=== PATIENT | female | born 1940 | race Caucasian/White ===

== ENCOUNTER → 2016-09-06 | Outpatient (REF) | payer MEDICARE, OTHER ==
[2016-09-06 12:14] LABS: ALBUMIN 4.2 GM/DL (3.2-5.2); ALKALINE PHOSPHATASE 77 U/L (45-117); ALT/SGPT 46 U/L (12-78); ANION GAP 9 MEQ/L (8-16); AST/SGOT 24 U/L (15-37); BILIRUBIN,TOTAL 0.7 MG/DL (0.2-1.0); BLOOD UREA NITROGEN 19 MG/DL (7-18); CALCIUM LEVEL 9.5 MG/DL (8.8-10.2); CARBON DIOXIDE LEVEL 30 MEQ/L (21-32); CHLORIDE LEVEL 101 MEQ/L (98-107); CHOLESTEROL LEVEL 197 MG/DL (<200); CREATININE FOR GFR 0.89 MG/DL (0.55-1.02); GLOMERULAR FILTRATION RATE > 60.0 (>39); GLUCOSE, FASTING 187 MG/DL (83-110); MAGNESIUM LEVEL 1.7 MG/DL (1.8-2.4); SODIUM LEVEL 140 MEQ/L (136-145); TRIGLYCERIDES LEVEL 120 MG/DL (<150); URIC ACID 8.9 MG/DL (2.6-6.0)
== END ==
LOC: M SFHCPLAZ 08:42
PROVIDERS: ATTEND Internal Medicine
DX: I10 Essential (primary) hypertension (principal); R73.01 Impaired fasting glucose; E78.00 Pure hypercholesterolemia, unspecified; E79.0 Hyperuricemia without signs of inflammatory arthritis and tophaceous disease

== ENCOUNTER → 2017-03-22 | Outpatient (REF) | payer MEDICARE, OTHER ==
[2017-03-22 12:38] LABS: ALBUMIN 4.2 GM/DL (3.2-5.2); ALKALINE PHOSPHATASE 69 U/L (45-117); ALT/SGPT 58 U/L (12-78); ANION GAP 10 MEQ/L (8-16); AST/SGOT 41 U/L (7-37); BILIRUBIN,TOTAL 0.6 MG/DL (0.2-1.0); BLOOD UREA NITROGEN 20 MG/DL (7-18); CALCIUM LEVEL 9.5 MG/DL (8.8-10.2); CARBON DIOXIDE LEVEL 28 MEQ/L (21-32); CHLORIDE LEVEL 103 MEQ/L (98-107); CHOLESTEROL LEVEL 219 MG/DL (<200); CREATININE FOR GFR 0.95 MG/DL (0.55-1.02); GLOMERULAR FILTRATION RATE > 60.0 (>39); GLUCOSE, FASTING 143 MG/DL (83-110); MAGNESIUM LEVEL 1.6 MG/DL (1.8-2.4); POTASSIUM SERUM 4.5 MEQ/L (3.5-5.1); SODIUM LEVEL 141 MEQ/L (136-145); TRIGLYCERIDES LEVEL 148 MG/DL (<150); URIC ACID 6.3 MG/DL (2.6-6.0)
== END ==
LOC: M SFHCPLAZ 08:49
PROVIDERS: ATTEND Internal Medicine
DX: I10 Essential (primary) hypertension (principal); E11.29 Type 2 diabetes mellitus with other diabetic kidney complication; E78.00 Pure hypercholesterolemia, unspecified; E79.0 Hyperuricemia without signs of inflammatory arthritis and tophaceous disease

== ENCOUNTER → 2017-10-25 | Outpatient (REF) | payer MEDICARE, OTHER ==
[2017-10-25 10:30] LABS: HEMATOCRIT 37.3 % (36.0-47.0); HEMOGLOBIN 12.5 g/dl (12.0-15.5); MEAN CORPUSCULAR HEMOGLOBIN 31.6 pg (27.0-33.0); MEAN CORPUSCULAR HGB CONC 33.5 g/dl (32.0-36.5); MEAN CORPUSCULAR VOLUME 94.2 fl (80.0-96.0); PLATELET COUNT, AUTOMATED 237 10^3/uL (150-450); RED BLOOD COUNT 3.96 10^6/uL (4.00-5.40); RED CELL DISTRIBUTION WIDTH 12.2 % (11.5-14.5)
[2017-10-25 11:35] LABS: ALBUMIN/GLOBULIN RATIO 1.33 (1.00-1.93); ALKALINE PHOSPHATASE 85 U/L (45-117); ALT/SGPT 37 U/L (12-78); ANION GAP 9 MEQ/L (8-16); AST/SGOT 26 U/L (7-37); BILIRUBIN,TOTAL 0.5 MG/DL (0.2-1.0); BLOOD UREA NITROGEN 20 MG/DL (7-18); CALCIUM LEVEL 8.7 MG/DL (8.8-10.2); CARBON DIOXIDE LEVEL 31 MEQ/L (21-32); CHLORIDE LEVEL 102 MEQ/L (98-107); CHOLESTEROL LEVEL 195 MG/DL (<200); CHOLESTEROL RISK RATIO 3.979 (<5); GLOMERULAR FILTRATION RATE 57.2 (>39); GLUCOSE, FASTING 152 MG/DL (70-100); HDL CHOLESTEROL 49 MG/DL (>40); LDL CHOLESTEROL 120.8 MG/DL (<100); MAGNESIUM LEVEL 1.7 MG/DL (1.8-2.4); NON-HDL-C 146 MG/DL; POTASSIUM SERUM 4.2 MEQ/L (3.5-5.1); SODIUM LEVEL 142 MEQ/L (136-145); TRIGLYCERIDES LEVEL 126 MG/DL (<150)
[2017-10-25 13:27] LABS: CREATININE, URINE < 13.0 MG/DL; MALB URINE SIEMENS < 5.0 MG/L
[2017-10-25 18:09] LABS: ESTIMATED AVERAGE GLUCOSE 154 MG/DL (60-110)
== END ==
LOC: M SFHCPLAZ 08:27
DX: K21.9 Gastro-esophageal reflux disease without esophagitis (principal); I10 Essential (primary) hypertension; E11.29 Type 2 diabetes mellitus with other diabetic kidney complication; E78.00 Pure hypercholesterolemia, unspecified
CPT/HCPCS: 83735

== ENCOUNTER → 2018-03-01 | Outpatient (REF) | payer MEDICARE, OTHER ==
[2018-03-01 12:28] LABS: ALBUMIN 4.1 GM/DL (3.2-5.2); ALBUMIN/GLOBULIN RATIO 1.46 (1.00-1.93); ALKALINE PHOSPHATASE 84 U/L (45-117); ALT/SGPT 32 U/L (12-78); ANION GAP 8 MEQ/L (8-16); AST/SGOT 32 U/L (7-37); BILIRUBIN,TOTAL 0.7 MG/DL (0.2-1.0); BLOOD UREA NITROGEN 24 MG/DL (7-18); CALCIUM LEVEL 9.4 MG/DL (8.8-10.2); CARBON DIOXIDE LEVEL 29 MEQ/L (21-32); CHLORIDE LEVEL 104 MEQ/L (98-107); CHOLESTEROL LEVEL 206 MG/DL (<200); CHOLESTEROL RISK RATIO 3.377 (<5); CREATININE FOR GFR 0.93 MG/DL (0.55-1.30); GLOMERULAR FILTRATION RATE > 60.0 (>39); GLUCOSE, FASTING 125 MG/DL (70-100); HDL CHOLESTEROL 61 MG/DL (>40); LDL CHOLESTEROL 119 MG/DL (<100); NON-HDL-C 145 MG/DL; POTASSIUM SERUM 4.7 MEQ/L (3.5-5.1); SODIUM LEVEL 141 MEQ/L (136-145); TOTAL 25(OH) VITAMIN D 44.6 NG/ML (30.0-100.0); TOTAL PROTEIN 6.9 GM/DL (6.4-8.2); TRIGLYCERIDES LEVEL 130 MG/DL (<150); URIC ACID 5.2 MG/DL (2.6-6.0)
[2018-03-01 12:56] LABS: CREATININE, URINE 13.8 MG/DL; MALB URINE SIEMENS < 5.0 MG/L
[2018-03-01 12:58] LABS: MAU/CREAT RATIO 36.2 MCG/MG (0.0-30.0)
[2018-03-01 13:34] LABS: ESTIMATED AVERAGE GLUCOSE 143 MG/DL (60-110); HEMOGLOBIN A1c 6.6 %
== END ==
LOC: M SFHCPLAZ 08:56
DX: I10 Essential (primary) hypertension (principal); E11.29 Type 2 diabetes mellitus with other diabetic kidney complication; E78.00 Pure hypercholesterolemia, unspecified; E79.0 Hyperuricemia without signs of inflammatory arthritis and tophaceous disease; E55.9 Vitamin D deficiency, unspecified; Z79.899 Other long term (current) drug therapy
CPT/HCPCS: 83735

== ENCOUNTER → 2018-07-17 | Outpatient (REF) | payer MEDICARE, OTHER ==
[~2018-07-17] MED LIST: ASPI1TAB PO; DRIS50003 PO; FURO20TA2 PO; GLUC1CAP10 PO; IBUP-1114 PO; LISI20TA PO; MAGN400C2 PO; METF500T13 PO; OXYB5TAB10 PO; PANT20TA2 PO; ZYLO300T6 PO
[2018-07-17 12:33] LABS: HEMATOCRIT 42.4 % (36.0-47.0); HEMOGLOBIN 13.8 g/dl (12.0-15.5); MEAN CORPUSCULAR HEMOGLOBIN 31.2 pg (27.0-33.0); MEAN CORPUSCULAR HGB CONC 32.5 g/dl (32.0-36.5); MEAN CORPUSCULAR VOLUME 95.7 fl (80.0-96.0); PLATELET COUNT, AUTOMATED 229 10^3/uL (150-450); RED BLOOD COUNT 4.43 10^6/uL (4.00-5.40); WHITE BLOOD COUNT 6.1 10^3/uL (4.0-10.0)
[2018-07-17 13:33] LABS: CREATININE, URINE < 13.0 MG/DL; MALB URINE SIEMENS < 5.0 MG/L
[2018-07-17 13:38] LABS: ALBUMIN 4.3 GM/DL (3.2-5.2); ALT/SGPT 28 U/L (12-78); BILIRUBIN,TOTAL 0.7 MG/DL (0.2-1.0); BLOOD UREA NITROGEN 24 MG/DL (7-18); CALCIUM LEVEL 9.8 MG/DL (8.8-10.2); CARBON DIOXIDE LEVEL 28 MEQ/L (21-32); CHLORIDE LEVEL 103 MEQ/L (98-107); CHOLESTEROL LEVEL 212 MG/DL (<200); CHOLESTEROL RISK RATIO 3.419 (<5); GLOMERULAR FILTRATION RATE > 60.0 (>39); GLUCOSE, FASTING 135 MG/DL (70-100); HDL CHOLESTEROL 62 MG/DL (>40); LDL CHOLESTEROL 128 MG/DL (<100); NON-HDL-C 150 MG/DL; POTASSIUM SERUM 4.4 MEQ/L (3.5-5.1); SODIUM LEVEL 140 MEQ/L (136-145); TRIGLYCERIDES LEVEL 108 MG/DL (<150)
[2018-07-17 15:44] LABS: HEMOGLOBIN A1c 6.6 %
== END ==
LOC: M SFHCPLAZ 09:21
PROVIDERS: ATTEND Internal Medicine
DX: K21.9 Gastro-esophageal reflux disease without esophagitis (principal); I10 Essential (primary) hypertension; E11.29 Type 2 diabetes mellitus with other diabetic kidney complication; E78.00 Pure hypercholesterolemia, unspecified

== ENCOUNTER → 2019-01-18 | Outpatient (REF) | payer MEDICARE, OTHER ==
[~2019-01-18] MED LIST changes: -ASPI1TAB PO; +ASPI81TA26 PO; -LISI20TA PO; +LISI20TA19 PO
[2019-01-18 12:28] LABS: ALBUMIN 4.2 GM/DL (3.2-5.2); BILIRUBIN,TOTAL 0.6 MG/DL (0.2-1.0); CALCIUM LEVEL 9.7 MG/DL (8.8-10.2); CHOLESTEROL RISK RATIO 3.442 (<5); CREATININE FOR GFR 1.07 MG/DL (0.55-1.30); GLOMERULAR FILTRATION RATE 52.8 (>39); MAGNESIUM LEVEL 2.1 MG/DL (1.8-2.4); POTASSIUM SERUM 4.5 MEQ/L (3.5-5.1); TOTAL PROTEIN 6.9 GM/DL (6.4-8.2)
[2019-01-18 13:21] LABS: HEMOGLOBIN A1c 7.2 %
== END ==
LOC: M SFHCPLAZ 08:58
PROVIDERS: ATTEND Internal Medicine
DX: I10 Essential (primary) hypertension (principal); E11.29 Type 2 diabetes mellitus with other diabetic kidney complication; E78.00 Pure hypercholesterolemia, unspecified

== ENCOUNTER 2019-11-26 02:11 | Inpatient (IN) | payer MEDICARE, BC, OTHER ==
[~2019-11-26] VITALS: Ht 160 cm; Wt 93.8 kg
[~2019-11-26 02:11] MED LIST changes: -LISI20TA19 PO; +LISI20TA35 PO; -PANT20TA2 PO; +PANT20TA6 PO
[2019-11-26] MEDS ORDERED: TRUL10IN INJ (02:25)
[2019-11-26] MEDS ORDERED: AMIT25TA PO (02:25)
[2019-11-26] MEDS ORDERED: NS 500 ML IV ONE ×2 (03:15→05:45)
[2019-11-26 03:32] LABS: BASO # 0.1 10^3/uL (0.0-0.2); BASO % 0.3 % (0.0-1.0); EOS % 0.1 % (0.0-3.0); HEMATOCRIT 41.2 % (36.0-47.0); HEMOGLOBIN 13.5 g/dl (12.0-15.5); LYMPH # 0.8 10^3/uL (1.5-5.0); LYMPH % 4.7 % (24.0-44.0); MEAN CORPUSCULAR HEMOGLOBIN 30.8 pg (27.0-33.0); MEAN CORPUSCULAR HGB CONC 32.8 g/dl (32.0-36.5); MEAN CORPUSCULAR VOLUME 93.8 fl (80.0-96.0); MONO % 5.7 % (0.0-5.0); NEUTROPHILS % 88.8 % (36.0-66.0); PLATELET COUNT, AUTOMATED 178 10^3/uL (150-450); RED BLOOD COUNT 4.39 10^6/uL (4.00-5.40); WHITE BLOOD COUNT 16.9 10^3/uL (4.0-10.0)
[2019-11-26] MEDS: GASTROGRAFIN SOLUTION 30ML PO SCH ×2 (03:35→04:05)
[2019-11-26 04:00] LABS: ALBUMIN 3.6 GM/DL (3.2-5.2); BILIRUBIN,DIRECT 0.2 MG/DL (0.0-0.2); BILIRUBIN,TOTAL 0.8 MG/DL (0.2-1.0); CALCIUM LEVEL 8.7 MG/DL (8.8-10.2); CREATININE FOR GFR 1.09 MG/DL (0.55-1.30); GLOMERULAR FILTRATION RATE 51.5 (>39); POTASSIUM SERUM 3.9 MEQ/L (3.5-5.1); TOTAL PROTEIN 6.6 GM/DL (6.4-8.2)
[2019-11-26] MEDS ORDERED: ISOVUE-370 76% 100ML VIAL As Ordered ONE (05:29)
[2019-11-26 06:00] LABS: APPEARANCE, URINE HAZY (CLEAR); BACTERIA, URINE AUTO NEGATIVE (NEGATIVE); BILIRUBIN, URINE AUTO NEGATIVE (NEGATIVE); BLOOD, URINE BLOOD 1+ (NEGATIVE); COLOR, URINE YELLOW (YELLOW); GLUCOSE, URINE (UA) AUTO NEGATIVE (NEGATIVE); KETONE, URINE AUTO NEGATIVE (NEGATIVE); LEUKOCYTE ESTERASE, URINE AUTO 2+ (NEGATIVE); MUCUS, URINE SMALL (NEGATIVE); NITRITE, URINE AUTO NEGATIVE (NEGATIVE); PROTEIN, URINE AUTO NEGATIVE (NEGATIVE); RBC, URINE AUTO 3 /HPF (0-3); SPECIFIC GRAVITY URINE AUTO 1.026 (1.002-1.035); SQUAMOUS EPITHELIAL CELL UR AU 3 /HPF (0-6); UROBILINOGEN, URINE AUTO 0.2 mg/dL (0.0-2.0); WBC, URINE AUTO 2 /HPF (0-3)
[2019-11-26] MEDS ORDERED: ACETAMINOPHEN *IV* 1,000 MG in IV 1 EA IV ONE (06:00)
[2019-11-26] MEDS ORDERED: diphenhydrAMINE 50MG/ML VIAL (J1200) IV STA (06:05)
--- NOTE | 2019-11-26 06:23 | REPVR ---
PROCEDURE INFORMATION: Exam: CT Abdomen And Pelvis With Contrast Exam date and time: 11/26/2019 5:32 AM Age: 79 years old Clinical indication: Abdominal pain; Additional info: Lower quad pain TECHNIQUE: Imaging protocol: Computed tomography of the abdomen and pelvis with intravenous contrast. Radiation optimization: All CT scans at this facility use at least one of these dose optimization techniques: automated exposure control; mA and/or kV adjustment per patient size (includes targeted exams where dose is matched to clinical indication); or iterative reconstruction. Contrast material: ISO 370; Contrast volume: 100 ml; Contrast route: INTRAVENOUS (IV); COMPARISON: No relevant prior studies available. FINDINGS: Limitations: Limited by patient's body habitus. Mediastinal space: Small gastroesophageal sliding type hiatal hernia. Mild gastro-esophageal thickening. Question distal esophagitis. Liver: Normal. No mass. Gallbladder and bile ducts: Cholecystectomy clips in the right upper quadrant. Pancreas: Normal. No ductal dilation. Spleen: Normal. No splenomegaly. Adrenals: Normal. No mass. Kidneys and ureters: Normal. No hydronephrosis. Stomach and bowel: Mild colonic diverticulosis without evidence for acute diverticulitis. Minimal stranding adjacent to the cecum. Appendix: No appendix identified. Intraperitoneal space: Unremarkable. No free air. No significant fluid collection. Vasculature: Unremarkable. No abdominal aortic aneurysm. Lymph nodes: Unremarkable. No enlarged lymph nodes. Bladder: Unremarkable as visualized. Reproductive: Hysterectomy. Bones/joints: Moderate to severe lower lumbar spinal stenosis. Soft tissues: Abnormal soft tissue thickening of the ascending colon, correlate for neoplasm, or perhaps infectious or inflammatory causes. IMPRESSION: 1. Abnormal soft tissue thickening of the ascending colon, correlate for neoplasm, or perhaps infectious or inflammatory causes. Minimal stranding adjacent to the cecum. Recommend GI follow-up. Consider barium enema. 2. Mild gastro-esophageal thickening. Question distal esophagitis. Electronically signed by: Olegario Garza On 11/26/2019 06:22:41 AM
[2019-11-26] MEDS ORDERED: metroNIDAZOLE 500 MG in IV 1 EA IV ONE (06:45)
[2019-11-26] MEDS ORDERED: CIPROFLOXACIN 400 MG in IV 1 EA IV ONE (06:45)
[2019-11-26] MEDS ORDERED: VITA50005 PO (06:54)
[2019-11-26] MEDS ORDERED: DEXTROSE 50% 50 ML SYRINGE IV PRN (10:30)
[2019-11-26] MEDS ORDERED: GLUCAGON INJ 1MG VIAL SC PRN (10:30)
[2019-11-26] MEDS ORDERED: GLUCOSE 4GM CHEW TABLET PO PRN (10:30)
[2019-11-26] MEDS ORDERED: MORPHINE 4 MG/ML 1ML VIAL/SYRINGE (J2270) IV PRN (11:15)
[2019-11-26] MEDS ORDERED: ONDANSETRON 4MG/2ML VIAL IV PRN (11:15)
[2019-11-26] MEDS: NS 1,000 ML IV SCH ×2 (11:16→19:57)
[2019-11-26] MEDS: ENOXAPARIN 40MG/0.4ML SYRINGE (J1650 PER 10MG) SC SCH (11:17)
[2019-11-26] MEDS ORDERED: ACETAMINOPHEN 500 MG TAB As Ordered ONE (13:03)
[2019-11-26] MEDS ORDERED: ACETAMINOPHEN 500 MG TAB PO ONE (13:15)
[2019-11-26 13:40] VITALS: BP 136/65
[2019-11-26] MEDS: HumaLOG INSULIN (NovoLOG) PER UNIT SC SCH ×3 (14:18→21:00)
[2019-11-26] MEDS: PANTOPRAZOLE 40MG VIAL (C9113 PER 1) IV SCH (14:26)
[2019-11-26] MEDS: metroNIDAZOLE 500 MG in IV 1 EA IV SCH ×2 (14:26→21:50)
[2019-11-26] MEDS: CIPROFLOXACIN 400 MG in IV 1 EA IV SCH (19:57)
--- NOTE | 2019-11-26 20:20 | HPEPDOC ---
General Date of Admission 11/26/19 Date of Service: Nov 26, 2019 Chief Complaint The patient is a 79-year-old female admitted with a reason for visit of N/V. History of Present Illness 79 year old female with PMH of HTN, DM, HLD, GERD, Diverticulosis came to the ED with abdominal pain, nausea and fever which started last night. She was taking ASA every 2 hours at home to control the fever. However it did not improve so came to the ED. He abdominal pain is crampy and is relieved after she has a bowel movement. When the cramps come it is about 8/10 in intensity then it relaxes. The stool is liquid greenish in color with no blood in it. CT in the the ED showed Abnormal soft tissue thickening of the ascending colon, perhaps infectious or inflammatory causes however neoplasm also needs to be ruled out. Minimal stranding adjacent to the cecum. Mild gastro-esophageal thickening. Question distal esophagitis. Patient had colonoscopy 2 years ago. Patient was admitted for Colitis. Home Medications Scheduled Allopurinol (Zyloprim) 300 Mg Tab, 150 MG PO DAILY, (Reported) Amitriptyline HCl (Amitriptyline HCl) 25 Mg Tablet, 25 MG PO QHS, (Reported) Aspirin (Aspirin EC) 81 Mg Tab, 81 MG PO DAILY, (Reported) Dulaglutide (Trulicity) 0.75 Mg/0.5 Ml Pen.injctr, 0.75 MG INJ QWEEK, (Reported) tuesday Ergocalciferol (Vitamin D2) (Vitamin D2) 50,000 Units Cap, 50,000 UNITS PO Q2WK, (Reported) tuesday Furosemide (Furosemide) 20 Mg Tab, 20 MG PO 3XW, (Reported) tue,tue,tue Gluc Floyd/Chondro Floyd A/Vit C/Mn (Glucosamine-Chondroitin Cap) 1 Cap Cap, 1 CAP PO DAILY, (Reported) Lisinopril/Hydrochlorothiazide (Lisinopril-Hctz 20-12.5 mg Tab) 1 Tab Tab, 1 TAB PO DAILY, (Reported) Magnesium Oxide (Magnesium) 400 Mg Cap, 400 MG PO DAILY, (Reported) Oxybutynin Chloride (Oxybutynin Chloride) 5 Mg Tab, 5 MG PO DAILY, (Reported) Pantoprazole Sodium (Pantoprazole Sodium) 20 Mg Tab, 20 MG PO DAILY, (Reported) Scheduled PRN Ibuprofen (Ibuprofen) 400 Mg Tab, 400 MG PO QHS PRN for PAIN, (Reported) Allergies Coded Allergies: Penicillins (Unverified Allergy, Intermediate, RASH, 11/26/19) shellfish derived (Unverified Allergy, Unknown, 11/26/19) morphine (Verified Adverse Reaction, Mild, N/V, 11/26/19) sitagliptin (Verified Adverse Reaction, Mild, DIARRHEA, 11/26/19) Past Medical History Medical History HYPERTENSION TYPE 2 DIABETES MELLITUS WITH OTHER DIABETIC KIDNEY COMPLICATION HYPERCHOLESTEROLEMIA GASTROESOPHAGEAL REFLUX ALLERGIC RHINITIS DYSTHYMIA VITAMIN D DEFICIENCY DIVERTICULOSIS 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 Social History * Smoker: non-smoker Alcohol: rarely Drugs: denies A-FIB/CHADSVASC A-FIB History Current/History of A-Fib/PAF?: No Review of Systems Constitutional: Reports: Chills, Fever, Malaise, Weakness Eyes: Denies: Pain, Vision change ENT: Denies: Head Aches, Ear Pain, Dysphagia Skin: Denies: Rash, Lesions, Breakdown Pulmonary: Denies: Dyspnea, Cough Cardiovascular: Denies: Chest Pain, Palpitations, Orthopnea, Paroxysmal Noc. Dyspnea, Lt Headedness Gastrointestinal: Reports: Nausea, Abdominal Pain, Diarrhea Genitourinary: Reports: Incontinence; Denies: Dysuria, Frequency, Retention Hematologic: Denies: Bruising, Bleeding Excessively Musculoskeletal: Reports: Back Pain; Denies: Neck Pain, Joint Pain, Muscle Pain, Spasms Physical Examination General Exam: Positive: Alert, Cooperative, No Acute Distress Eye Exam: Positive: PERRLA, Conjunctiva & lids normal, EOMI; Negative: Sclera icteric ENT Exam: Positive: Atraumatic, Mucous membr. moist/pink, Pharynx Normal Neck Exam: Positive: Supple; Negative: JVD, thyromegaly Chest Exam: Positive: Clear to auscultation, Normal air movement Heart Exam: Positive: Rate Normal, Regular Rhythm, Normal S1, Normal S2; Negative: Murmurs, Rubs Abdomen Exam: Positive: Normal bowel sounds, Soft, Tenderness (on juaquin right illiac fossa, right lumber region), Other (No guarding or rigidity); Negative: Hepatospenomegaly Extremity Exam: Negative: Clubbing, Cyanosis, Edema Skin Exam: Positive: Other skin issue (chronic venous stasis changes) Neuro Exam: Positive: Normal Speech, Strength at 5/5 X4 ext, Normal Tone Vital Signs Vital Signs Date Time Temp Pulse Resp B/P (MAP) Pulse Ox O2 Delivery O2 Flow Rate FiO2 11/26/19 06:46 18 152/67 (95) 95 Room Air 11/26/19 06:30 117 11/26/19 06:15 99.2 Laboratory Data Labs 24H Laboratory Tests 2 11/26/19 03:00: Immature Granulocyte % (Auto) 0.4, Neutrophils (%) (Auto) 88.8H, Lymphocytes (%) (Auto) 4.7L, Monocytes (%) (Auto) 5.7H, Eosinophils (%) (Auto) 0.1, Basophils (%) (Auto) 0.3, Neutrophils # (Auto) 15.0H, Lymphocytes # (Auto) 0.8L, Monocytes # (Auto) 1.0H, Eosinophils # (Auto) 0.0, Basophils # (Auto) 0.1, Nucleated Red Blood Cells % (auto) 0.0, Urine Color YELLOW, Urine Appearance HAZY, Urine pH 5.0, Urine Specific [place] 1.026, Urine Protein NEGATIVE, Urine Glucose (Au to)(UA) NEGATIVE, Urine Ketones (Auto) NEGATIVE, Urine Blood 1+H, Urine Nitrite NEGATIVE, Urine Bilirubin NEGATIVE, Urine Urobilinogen 0.2, Urine Leukocyte Esterase (Auto) 2+H, Urine WBC (Auto) 2, Urine RBC (Auto) 3, Urine Hyaline Casts (Auto) 4, Urine Bacteria (Auto) NEGATIVE, Urine Squamous Epithelial Cells 3, Urine Mucus (Auto) SMALL, Urine Sperm (Auto) , Anion Gap 9, Glomerular Filtration Rate 51.5, Lactic Acid Level 2.2*H, Calcium Level 8.7L, Total Bilirubin 0.8, Direct Bilirubin 0.2, Aspartate Amino Transf (AST/SGOT) 24, Alanine Aminotransferase (ALT/SGPT) 36, Alkaline Phosphatase 78, Total Protein 6.6, Albumin 3.6, Albumin/Globulin Ratio 1.2, Lipase 81 CBC/BMP Laboratory Tests 11/26/19 03:00 Microbiology Microbiology 11/26/19 Respiratory Virus Panel (PCR) ([facility]), Received Pending 11/26/19 Blood Culture, Received Pending Assessment/Plan 79 year old female with PMH of HTN, DM, HLD, GERD, Diverticulosis came to the ED with abdominal pain, nausea and fever which started last night. She was taking ASA every 2 hours at home to control the fever. However it did not improve so came to the ED. He abdominal pain is crampy and is relieved after she has a bowel movement. When the cramps come it is about 8/10 in intensity then it relaxes. The stool is liquid greenish in color with no blood in it. CT in the the ED showed Abnormal soft tissue thickening of the ascending colon, perhaps infectious or inflammatory causes however neoplasm also needs to be ruled out. Minimal stranding adjacent to the cecum. Mild gastro-esophageal thickening. Question distal esophagitis. Patient had colonoscopy 2 years ago. Patient was admitted for Colitis. Colitis with Sepsis will treat as infectious colitis at present check GI panel Cipro and flagyl. IVF, IV Morphine 3 mg q 3hours for pain control Will Consider GI evaluation if no improvement by tomorrow Hypertension Hold lisinopril, lasix and HCTZ for now Bp well controlled will restart lisinopril if needed. Diabetes with neuropathy lispro as per sliding scle. FS AC and HS. No trulicity here. amitriptyline. GERD PPI Hyperuricemia continue allopurinol Plan / VTE VTE Prophylaxis Ordered?: Yes SONNY PICHARDO MD Nov 26, 2019 10:43
[2019-11-26] MEDS: AMITRIPTYLINE 25 MG TAB PO SCH (21:50)
[2019-11-26 22:00] VITALS: BP 130/71
[2019-11-27] MEDS: metroNIDAZOLE 500 MG in IV 1 EA IV SCH (05:24)
[2019-11-27 06:00] VITALS: BP 138/62
[2019-11-27] MEDS: NS 1,000 ML IV SCH ×2 (06:30→13:16)
[2019-11-27] MEDS: HumaLOG INSULIN (NovoLOG) PER UNIT SC SCH ×4 (08:27→20:56)
[2019-11-27] MEDS: CIPROFLOXACIN 400 MG in IV 1 EA IV SCH ×2 (08:28→20:38)
[2019-11-27] MEDS: oxyBUTYnin 5 MG TAB PO SCH (08:28)
[2019-11-27] MEDS: ASPIRIN 81 MG ENTERIC TAB PO SCH (08:28)
[2019-11-27] MEDS: allopurinoL 300 MG TAB PO SCH (08:28)
[2019-11-27] MEDS: ENOXAPARIN 40MG/0.4ML SYRINGE (J1650 PER 10MG) SC SCH (08:29)
[2019-11-27] MEDS: PANTOPRAZOLE 40MG VIAL (C9113 PER 1) IV SCH (08:29)
[2019-11-27 08:54] LABS: BASO % 0.3 % (0.0-1.0); HEMATOCRIT 38.4 % (36.0-47.0); HEMOGLOBIN 12.3 g/dl (12.0-15.5); LYMPH # 1.9 10^3/uL (1.5-5.0); LYMPH % 15.8 % (24.0-44.0); MEAN CORPUSCULAR HEMOGLOBIN 30.8 pg (27.0-33.0); MONO # 0.6 10^3/uL (0.0-0.8); MONO % 4.6 % (0.0-5.0); NEUTROPHILS # 9.3 10^3/uL (1.5-8.5); NEUTROPHILS % 78.9 % (36.0-66.0); PLATELET COUNT, AUTOMATED 142 10^3/uL (150-450); WHITE BLOOD COUNT 11.8 10^3/uL (4.0-10.0)
[2019-11-27 09:15] LABS: ALBUMIN 2.8 GM/DL (3.2-5.2); ALT/SGPT 26 U/L (12-78); BILIRUBIN,TOTAL 0.8 MG/DL (0.2-1.0); BLOOD UREA NITROGEN 10 MG/DL (7-18); CALCIUM LEVEL 8.1 MG/DL (8.8-10.2); CARBON DIOXIDE LEVEL 22 MEQ/L (21-32); CHLORIDE LEVEL 107 MEQ/L (98-107); CREATININE FOR GFR 0.83 MG/DL (0.55-1.30); GLOMERULAR FILTRATION RATE > 60.0 (>39); GLUCOSE, FASTING 147 MG/DL (70-100); POTASSIUM SERUM 3.2 MEQ/L (3.5-5.1); SODIUM LEVEL 138 MEQ/L (136-145)
[2019-11-27] MEDS ORDERED: POTASSIUM CHLORIDE 10 MEQ SR TABLET PO ONE (10:00)
[2019-11-27 14:00] VITALS: BP 108/63
--- NOTE | 2019-11-27 15:35 | IPNPDOC ---
Text Note Date of Service The patient was seen on 11/27/19. NOTE Subjective: Pt feels better today. Abd pain improving. No N/V. No CP/SOB/palpitations. Objective: Vitals: (see below) General: No acute distress, laying comfortably in bed. HEENT: Moist mucous membranes. Neck: No JVD or lymphadenopathy Cardiac: RRR, No murmurs Pulm: Clear to auscultation b/l. No wheezing, rhonchi Abd: NT/ND + BS Ext: No edema or cyanosis Labs (see below) Images: Assessment/Plan 79 year old female with PMH of HTN, DM, HLD, GERD, Diverticulosis came to the ED with abdominal pain, nausea and fever which started last night. She was taking ASA every 2 hours at home to control the fever. However it did not improve so came to the ED. He abdominal pain is crampy and is relieved after she has a bowel movement. When the cramps come it is about 8/10 in intensity then it relaxes. The stool is liquid greenish in color with no blood in it. CT in the the ED showed Abnormal soft tissue thickening of the ascending colon, perhaps i nfectious or inflammatory causes however neoplasm also needs to be ruled out. Minimal stranding adjacent to the cecum. Mild gastro-esophageal thickening. Question distal esophagitis. Patient had colonoscopy 2 years ago. Patient was admitted for Colitis. Colitis with Sepsis -Improving - Leukocytosis trending down - +Salmonella - Cipro and flagyl. IVF, IV Morphine 3 mg q 3hours for pain control - Advance diet as tolerated Hypertension Hold lisinopril, lasix and HCTZ for now Bp well controlled will restart lisinopril if needed. Diabetes with neuropathy lispro as per sliding scle. FS AC and HS. No trulicity here. amitriptyline. GERD PPI Hyperuricemia continue allopurinol DVT prophy: Lovenox VS,Fishbone, I+O VS, Fishbone, I+O Laboratory Tests 11/27/19 08:22 Vital Signs Date Time Temp Pulse Resp B/P (MAP) Pulse Ox O2 Delivery O2 Flow Rate FiO2 11/27/19 14:00 98.0 70 20 108/63 (78) 97 Room Air I&O- Last 24 Hours up to 6 AM 11/27/19 06:00 Intake Total 3222 ml Output Total 200 ml Balance 3022 ml TAYLOR CALERO MD Nov 27, 2019 15:35
[2019-11-27] MEDS: AMITRIPTYLINE 25 MG TAB PO SCH (20:38)
[2019-11-27 22:00] VITALS: BP 148/67
[2019-11-28] MEDS: ACETAMINOPHEN TAB 650MG DOSE (2X325MG) PO PRN ×2 (00:56→10:50)
[2019-11-28] MEDS: NS 1,000 ML IV SCH ×3 (02:30→20:16)
[2019-11-28 05:51] LABS: BASO % 0.4 % (0.0-1.0); EOS # 0.1 10^3/uL (0.0-0.5); EOS % 1.2 % (0.0-3.0); HEMATOCRIT 35.1 % (36.0-47.0); HEMOGLOBIN 11.3 g/dl (12.0-15.5); LYMPH # 1.3 10^3/uL (1.5-5.0); MEAN CORPUSCULAR HEMOGLOBIN 30.8 pg (27.0-33.0); MEAN CORPUSCULAR HGB CONC 32.2 g/dl (32.0-36.5); MEAN CORPUSCULAR VOLUME 95.6 fl (80.0-96.0); MONO # 0.6 10^3/uL (0.0-0.8); MONO % 7.7 % (0.0-5.0); NEUTROPHILS # 5.5 10^3/uL (1.5-8.5); NEUTROPHILS % 73.2 % (36.0-66.0); PLATELET COUNT, AUTOMATED 127 10^3/uL (150-450); RED BLOOD COUNT 3.67 10^6/uL (4.00-5.40); WHITE BLOOD COUNT 7.5 10^3/uL (4.0-10.0)
[2019-11-28 06:00] VITALS: BP 152/77
[2019-11-28 06:11] LABS: ALBUMIN 2.5 GM/DL (3.2-5.2); ALT/SGPT 23 U/L (12-78); BILIRUBIN,TOTAL 0.5 MG/DL (0.2-1.0); BLOOD UREA NITROGEN 7 MG/DL (7-18); CALCIUM LEVEL 7.8 MG/DL (8.8-10.2); CARBON DIOXIDE LEVEL 27 MEQ/L (21-32); CHLORIDE LEVEL 113 MEQ/L (98-107); GLOMERULAR FILTRATION RATE > 60.0 (>39); GLUCOSE, FASTING 132 MG/DL (70-100); MAGNESIUM LEVEL 1.4 MG/DL (1.8-2.4); POTASSIUM SERUM 3.5 MEQ/L (3.5-5.1); SODIUM LEVEL 143 MEQ/L (136-145); TOTAL PROTEIN 5.3 GM/DL (6.4-8.2)
[2019-11-28] MEDS: ENOXAPARIN 40MG/0.4ML SYRINGE (J1650 PER 10MG) SC SCH (08:04)
[2019-11-28] MEDS: PANTOPRAZOLE 40MG VIAL (C9113 PER 1) IV SCH (08:04)
[2019-11-28] MEDS: allopurinoL 300 MG TAB PO SCH (08:05)
[2019-11-28] MEDS: ASPIRIN 81 MG ENTERIC TAB PO SCH (08:05)
[2019-11-28] MEDS: oxyBUTYnin 5 MG TAB PO SCH (08:05)
[2019-11-28] MEDS: HumaLOG INSULIN (NovoLOG) PER UNIT SC SCH ×4 (08:05→21:00)
[2019-11-28] MEDS: CIPROFLOXACIN 400 MG in IV 1 EA IV SCH ×2 (08:08→20:16)
[2019-11-28] MEDS ORDERED: POTASSIUM CHLORIDE 10 MEQ SR TABLET PO ONE (09:00)
[2019-11-28] MEDS ORDERED: MAG SULF 1GM/100ML (MAG RUN) 1 GM in IV 1 EA IV ONE (09:00)
[2019-11-28] MEDS: lisinopriL 10 MG TAB PO SCH (10:50)
[2019-11-28 14:00] VITALS: BP 146/68
--- NOTE | 2019-11-28 15:40 | IPNPDOC ---
Text Note Date of Service The patient was seen on 11/28/19. NOTE Subjective: Pt with diarrhea again this am. Abd pain improving. No N/V. No CP /SOB/palpitations. Objective: Vitals: (see below) General: No acute distress, laying comfortably in bed. HEENT: Moist mucous membranes. Neck: No JVD or lymphadenopathy Cardiac: RRR, No murmurs Pulm: Clear to auscultation b/l. No wheezing, rhonchi Abd: NT/ND + BS Ext: No edema or cyanosis Labs (see below) Images: Assessment/Plan 79 year old female with PMH of HTN, DM, HLD, GERD, Diverticulosis came to the ED with abdominal pain, nausea and fever which started last night. She was taking ASA every 2 hours at home to control the fever. However it did not improve so came to the ED. He abdominal pain is crampy and is relieved after she has a bowel movement. When the cramps come it is about 8/10 in intensity then it relaxes. The stool is liquid greenish in color with no blood in it. CT in the the ED showed Abnormal soft tissue thickening of the ascending colon, perhaps infectious or inflammatory causes however neoplasm also needs to be ruled out. Minimal stranding adjacent to the cecum. Mild gastro-esophageal thickening. Question distal esophagitis. Patient had colonoscopy 2 years ago. Patient was admitted for Colitis. Colitis with Sepsis -Improving - Leukocytosis trending down - +Salmonella - Cipro and flagyl. IVF, IV Morphine 3 mg q 3hours for pain control - Advance diet as tolerated Hypertension Restart lisinopril Hold lasix and HCTZ for now Bp well controlled Diabetes with neuropathy lispro as per sliding scle. FS AC and HS. No trulicity here. amitriptyline. GERD PPI Hyperuricemia continue allopurinol DVT prophy: Lovenox Plan for d/c in the next 24hr if continues to improve VS,Fishbone, I+O VS, Fishbone, I+O Laboratory Tests 11/28/19 05:27 Vital Signs Date Time Temp Pulse Resp B/P (MAP) Pulse Ox O2 Delivery O2 Flow Rate FiO2 11/28/19 10:50 155/81 11/28/19 06:00 98.2 83 20 93 11/27/19 14:00 Room Air I&O- Last 24 Hours up to 6 AM 11/28/19 06:00 Intake Total 4210 ml Output Total 550 ml Balance 3660 ml TAYLOR CALERO MD Nov 28, 2019 15:40
[2019-11-28] MEDS: AMITRIPTYLINE 25 MG TAB PO SCH (20:16)
[2019-11-28 22:00] VITALS: BP_SYST 157; BP_SYST 167; BP_DIAS 84; BP_DIAS 85
[2019-11-29 04:00] VITALS: BP 157/83
[2019-11-29] MEDS: ACETAMINOPHEN TAB 650MG DOSE (2X325MG) PO PRN (04:48)
[2019-11-29 06:00] VITALS: BP 157/83
[2019-11-29 06:02] LABS: BASO % 0.4 % (0.0-1.0); EOS # 0.2 10^3/uL (0.0-0.5); EOS % 2.1 % (0.0-3.0); HEMATOCRIT 33.7 % (36.0-47.0); LYMPH # 1.7 10^3/uL (1.5-5.0); LYMPH % 24.1 % (24.0-44.0); MEAN CORPUSCULAR HGB CONC 32.6 g/dl (32.0-36.5); MEAN CORPUSCULAR VOLUME 94.9 fl (80.0-96.0); MONO # 0.8 10^3/uL (0.0-0.8); MONO % 10.5 % (0.0-5.0); NEUTROPHILS # 4.5 10^3/uL (1.5-8.5); NEUTROPHILS % 62.5 % (36.0-66.0); PLATELET COUNT, AUTOMATED 154 10^3/uL (150-450); RED BLOOD COUNT 3.55 10^6/uL (4.00-5.40); WHITE BLOOD COUNT 7.2 10^3/uL (4.0-10.0)
[2019-11-29 06:20] LABS: ALBUMIN 2.7 GM/DL (3.2-5.2); ALT/SGPT 23 U/L (12-78); BILIRUBIN,TOTAL 0.6 MG/DL (0.2-1.0); BLOOD UREA NITROGEN 6 MG/DL (7-18); CALCIUM LEVEL 8.1 MG/DL (8.8-10.2); CARBON DIOXIDE LEVEL 28 MEQ/L (21-32); CHLORIDE LEVEL 108 MEQ/L (98-107); CREATININE FOR GFR 0.75 MG/DL (0.55-1.30); GLOMERULAR FILTRATION RATE > 60.0 (>39); GLUCOSE, FASTING 138 MG/DL (70-100); MAGNESIUM LEVEL 1.5 MG/DL (1.8-2.4); POTASSIUM SERUM 3.5 MEQ/L (3.5-5.1); SODIUM LEVEL 141 MEQ/L (136-145); TOTAL PROTEIN 5.7 GM/DL (6.4-8.2)
[2019-11-29] MEDS ORDERED: MAG SULF 1GM/100ML (MAG RUN) 1 GM in IV 1 EA IV ONE (08:00)
[2019-11-29] MEDS: CIPROFLOXACIN 400 MG in IV 1 EA IV SCH (08:36)
[2019-11-29] MEDS: ENOXAPARIN 40MG/0.4ML SYRINGE (J1650 PER 10MG) SC SCH (08:36)
[2019-11-29] MEDS: HumaLOG INSULIN (NovoLOG) PER UNIT SC SCH (08:36)
[2019-11-29] MEDS: PANTOPRAZOLE 40MG VIAL (C9113 PER 1) IV SCH (08:37)
[2019-11-29] MEDS: NS 1,000 ML IV SCH (08:37)
[2019-11-29] MEDS: ASPIRIN 81 MG ENTERIC TAB PO SCH (08:46)
[2019-11-29] MEDS: allopurinoL 300 MG TAB PO SCH (08:47)
[2019-11-29] MEDS: oxyBUTYnin 5 MG TAB PO SCH (08:47)
[2019-11-29 08:51] VITALS: BP 155/79
[2019-11-29] MEDS: lisinopriL 10 MG TAB PO SCH (08:51)
[2019-11-29] MEDS ORDERED: CIPR-249 PO (10:18)
== END 2019-11-29 10:35 | disposition home or self-care (01) | DRG 872 ==
LOC: M ED 02:11 → M ED INP 10:26 → ENRESERV 11:54 → M MSPAV 13:40
PROVIDERS: ADMIT Internal Medicine Nephrology; ATTEND Internal Medicine
DX: A41.9 Sepsis, unspecified organism (principal); A09 Infectious gastroenteritis and colitis, unspecified; I10 Essential (primary) hypertension; E11.29 Type 2 diabetes mellitus with other diabetic kidney complication; E78.5 Hyperlipidemia, unspecified; K21.9 Gastro-esophageal reflux disease without esophagitis; M85.88 Other specified disorders of bone density and structure, other site; E11.40 Type 2 diabetes mellitus with diabetic neuropathy, unspecified; E55.9 Vitamin D deficiency, unspecified; N39.3 Stress incontinence (female) (male); F34.1 Dysthymic disorder; K57.30 Diverticulosis of large intestine without perforation or abscess without bleeding; J30.2 Other seasonal allergic rhinitis; Z66 Do not resuscitate; Z79.82 Long term (current) use of aspirin; Z79.899 Other long term (current) drug therapy; Z88.0 Allergy status to penicillin; Z88.5 Allergy status to narcotic agent; Z88.8 Allergy status to other drugs, medicaments and biological substances; Z91.013 Allergy to seafood

== ENCOUNTER → 2020-01-30 | Outpatient (CLI) | payer MEDICARE, BC, OTHER ==
[~2020-01-30] MED LIST changes: +AMIT25TA PO; +CIPR-249 PO; +TRUL10IN INJ; +VITA50005 PO
[2020-01-30 11:51] LABS: HEMATOCRIT 43.9 % (36.0-47.0); HEMOGLOBIN 14.1 g/dl (12.0-15.5); MEAN CORPUSCULAR HEMOGLOBIN 31.1 pg (27.0-33.0); MEAN CORPUSCULAR HGB CONC 32.1 g/dl (32.0-36.5); MEAN CORPUSCULAR VOLUME 96.7 fl (80.0-96.0); PLATELET COUNT, AUTOMATED 215 10^3/uL (150-450); RED BLOOD COUNT 4.54 10^6/uL (4.00-5.40); WHITE BLOOD COUNT 5.7 10^3/uL (4.0-10.0)
[2020-01-30 12:27] LABS: ALT/SGPT 37 U/L (12-78); BILIRUBIN,TOTAL 0.7 MG/DL (0.2-1.0); BLOOD UREA NITROGEN 16 MG/DL (7-18); CALCIUM LEVEL 9.4 MG/DL (8.8-10.2); CARBON DIOXIDE LEVEL 29 MEQ/L (21-32); CHLORIDE LEVEL 105 MEQ/L (98-107); CREATININE FOR GFR 0.87 MG/DL (0.55-1.30); GLOMERULAR FILTRATION RATE > 60.0 (>39); GLUCOSE, FASTING 133 MG/DL (70-100); POTASSIUM SERUM 4.6 MEQ/L (3.5-5.1); SODIUM LEVEL 138 MEQ/L (136-145)
[2020-01-30 12:28] LABS: ALBUMIN 4.2 GM/DL (3.2-5.2); CHOLESTEROL LEVEL 231 MG/DL (<200); CHOLESTEROL RISK RATIO 4.277 (<5); HDL CHOLESTEROL 54 MG/DL (>40); LDL CHOLESTEROL 143 MG/DL (<100); NON-HDL-C 177 MG/DL; TOTAL PROTEIN 7.2 GM/DL (6.4-8.2); TRIGLYCERIDES LEVEL 170 MG/DL (<150)
[2020-01-30 12:32] LABS: HEMOGLOBIN A1c 6.5 %
== END ==
LOC: M PLALAB 08:35
PROVIDERS: ATTEND Internal Medicine
DX: E11.29 Type 2 diabetes mellitus with other diabetic kidney complication (principal); I10 Essential (primary) hypertension; E78.00 Pure hypercholesterolemia, unspecified; K21.9 Gastro-esophageal reflux disease without esophagitis; J30.9 Allergic rhinitis, unspecified; E55.9 Vitamin D deficiency, unspecified; R79.89 Other specified abnormal findings of blood chemistry

== ENCOUNTER → 2020-08-19 | Outpatient (REF) | payer MEDICARE, OTHER ==
[~2020-08-19] MED LIST changes: -AMIT25TA PO; +AMIT25TA17 PO
== END ==
LOC: M SFHCPLAZ 12:16
PROVIDERS: ATTEND Internal Medicine
DX: M25.511 Pain in right shoulder (principal); M25.512 Pain in left shoulder
CPT/HCPCS: 36415; 85652; 86140; G0463

== ENCOUNTER → 2021-08-10 | Outpatient (CLI) | payer MEDICARE, BC, OTHER ==
[~2021-08-10] MED LIST changes: +ERGO500029 PO; -VITA50005 PO
== END ==
LOC: M WHC 10:25
PROVIDERS: ATTEND Internal Medicine
DX: Z12.31 Encounter for screening mammogram for malignant neoplasm of breast (principal); R92.1 Mammographic calcification found on diagnostic imaging of breast

== ENCOUNTER → 2022-02-22 | Outpatient (CLI) | payer MEDICARE, OTHER | LOC: M WHC 10:56 | PROVIDERS: ATTEND Nurse Practitioner Adult Health | DX: R92.8 Other abnormal and inconclusive findings on diagnostic imaging of breast (principal); M85.88 Other specified disorders of bone density and structure, other site; Z53.9 Procedure and treatment not carried out, unspecified reason ==

== ENCOUNTER → 2022-02-22 | Outpatient (CLI) | payer MEDICARE, BC, OTHER ==
[~2022-02-22] MED LIST changes: +B-122500 PO; +MELA5CAP2 PO
== END ==
LOC: M WHC 10:17
PROVIDERS: ATTEND Nurse Practitioner Adult Health
DX: R92.8 Other abnormal and inconclusive findings on diagnostic imaging of breast (principal); M85.89 Other specified disorders of bone density and structure, multiple sites; R92.1 Mammographic calcification found on diagnostic imaging of breast

== ENCOUNTER → 2022-03-01 | Outpatient (CLI) | payer MEDICARE, OTHER ==
[~2022-03-01] MED LIST changes: -B-122500 PO; -MELA5CAP2 PO
[2022-03-01 14:16] LABS: C REACTIVE PROTEIN QUANTITATIV 1.14 MG/DL (0.00-0.30); RHEUMATOID FACTOR QUANT < 10.0 IU/ML (<15.0); TOTAL PROTEIN 7.1 GM/DL (6.4-8.2)
[2022-03-03 00:07] LABS: ANA (HEP2) Negative (.); ANGIOTENSIN 1 CONVERTING ENZYM 8 U/L (14-82); CYCLIC CITRULLINATED PEPTIDE 5 units (0-19)
[2022-03-03 07:39] LABS: ALBUMIN % 61.5 % (55.8-66.1); ALPHA-1-GLOBULIN % 5.2 % (2.9-4.9); ALPHA-2-GLOBULINS % 14.2 % (7.1-11.8)
[2022-03-03 07:40] LABS: ALBUMIN 4.37 GM/DL (3.29-5.55); ALPHA-1-GLOBULINS 0.37 GM/DL (0.17-0.41); ALPHA-2-GLOBULINS 1.01 GM/DL (0.42-0.99); BETA-1-GLOBULINS 0.45 GM/DL (0.28-0.60); BETA-1-GLOBULINS % 6.3 % (4.7-7.2); BETA-2-GLOBULINS 0.38 GM/DL (0.19-0.55); BETA-2-GLOBULINS % 5.3 % (3.2-6.5); GAMMA GLOBULIN % 7.5 % (11.1-18.8); GAMMA GLOBULINS 0.53 GM/DL (0.65-1.58)
== END ==
LOC: M PLALAB 10:40
PROVIDERS: ATTEND Nurse Practitioner Adult Health
DX: M79.10 Myalgia, unspecified site (principal)

== ENCOUNTER → 2022-03-11 | Outpatient (CLI) | payer MEDICARE, BC, OTHER ==
[~2022-03-11] MED LIST changes: +B-122500 PO; +MELA5CAP2 PO
[2022-03-11 16:15] VITALS: BP 134/82
== END ==
LOC: M WHCPRO 13:40
PROVIDERS: ATTEND Nurse Practitioner Adult Health
DX: R92.8 Other abnormal and inconclusive findings on diagnostic imaging of breast (principal); N63.10 Unspecified lump in the right breast, unspecified quadrant

== ENCOUNTER → 2022-07-09 | Outpatient (REF) | payer MEDICARE, OTHER ==
[2022-07-09 17:02] LABS: BLOOD UREA NITROGEN 27 MG/DL (9-23); CALCIUM LEVEL 9.5 MG/DL (8.3-10.6); CARBON DIOXIDE LEVEL 32 MMOL/L (20-31); CHLORIDE LEVEL 98 MMOL/L (98-107); CREATININE FOR GFR 0.95 MG/DL (0.55-1.30); GLOMERULAR FILTRATION RATE > 60.0 (>32); GLUCOSE, FASTING 175 MG/DL (74-106); POTASSIUM SERUM 4.5 MMOL/L (3.5-5.1); SODIUM LEVEL 139 MMOL/L (136-145)
== END ==
LOC: M SFHCRHEU 13:33
PROVIDERS: ATTEND Internal Medicine
DX: R94.4 Abnormal results of kidney function studies (principal)

== ENCOUNTER → 2023-08-16 | Outpatient (CLI) | payer MEDICARE, OTHER ==
[~2023-08-16] MED LIST changes: -AMIT25TA17 PO; +AMIT25TA19 PO; -OXYB5TAB10 PO; +OXYB5TAB14 PO
[2023-08-16 16:09] LABS: HEMOGLOBIN A1c 7.2 % (4.0-6.0)
== END ==
LOC: M PLALAB 12:27
PROVIDERS: ATTEND Nurse Practitioner Adult Health
DX: E11.29 Type 2 diabetes mellitus with other diabetic kidney complication (principal)

== ENCOUNTER → 2023-12-13 | Outpatient (CLI) | payer MEDICARE, BC ==
[2023-12-13 16:47] LABS: HEMOGLOBIN A1c 6.4 % (4.0-6.0)
== END ==
LOC: M PLALAB 12:29
PROVIDERS: ATTEND Physician Assistant Medical
DX: E11.29 Type 2 diabetes mellitus with other diabetic kidney complication (principal)